=== PATIENT | male | born 1955 | race African-American/Black ===

== ENCOUNTER 2017-04-22 07:55 | Emergency (ER) | payer MEDICAID ==
[~2017-04-22] VITALS: Ht 175.3 cm; Wt 106.1 kg
[~2017-04-22 07:55] MED LIST: ALPOS OP; BLEOS OP; [UNRECOGNIZED DRUG - CODE] OP
[2017-04-22] MEDS ORDERED: MECL25TA PO (08:08)
[2017-04-22] MEDS ORDERED: LANTUS SQ (08:08)
[2017-04-22] MEDS ORDERED: GLIM4TAB PO (08:08)
[2017-04-22] MEDS ORDERED: PRAV40TA1 PO (08:08)
[2017-04-22] MEDS ORDERED: LISI10TA2 PO (08:08)
[2017-04-22] MEDS ORDERED: HYDR-3638 PO (08:08)
[2017-04-22] MEDS ORDERED: LISI20TA2 PO (08:08)
[2017-04-22 08:09] VITALS: BP 179/107
--- NOTE | 2017-04-22 08:09 | NUR ---
Patient wheelchair assisted to bed 3.
--- NOTE | 2017-04-22 08:23 | NUR ---
Patient being evaluated by DR GASTON at bedside.
--- NOTE | 2017-04-22 08:23 | NUR ---
PATIENT PRESENTS TO ED WITH ABDOMINAL PAIN X 2 DAYS NOTED BLOOD STREAKS IN BOWEL MOVEMENT . PT STATES .STATES NAUSEA AND LOOSE STOOLS; SKIN IS PINK/WARM/DRY; AAOX4 WITH EVEN AND STEADY GAIT; LUNGS CLEAR BL; HR EVEN AND REGULAR; PT DENIES ANY FEVER, CP, SOB, OR COUGH AT THIS TIME; PATIENT STATES PAIN OF 8/10 AT THIS TIME; VSS; PATIENT POSITIONED FOR COMFORT; HOB ELEVATED; BEDRAILS UP X2; BED DOWN. ER MD MADE AWARE OF PT STATUS.
[2017-04-22] MEDS ORDERED: cloNIDine 0.1 MG TAB PO ONE (08:35)
[2017-04-22] MEDS ORDERED: KETOROLAC 30 MG/ML VIAL IVP ONE (08:35)
[2017-04-22] MEDS ORDERED: MORPHINE SULFATE 2 MG/ML SYR IVP ONE (08:35)
[2017-04-22] MEDS ORDERED: ONDANSETRON 4 MG/2 ML VIAL IVP ONE (08:35)
[2017-04-22 08:59] LABS: BASOPHILS # (AUTO) 0.2 K/uL (0.00-0.22); EOSINOPHILS # (AUTO) 0.1 K/uL (0-0.4); EOSINOPHILS % (AUTO) 1.3 % (0.0-4.0); HEMATOCRIT 42.5 % (36-52); HEMOGLOBIN 13.5 g/dL (12.0-18.0); LYMPHOCYTES # (AUTO) 1.2 K/uL (2.0-11.5); LYMPHOCYTES % (AUTO) 22.6 % (20.5-51.1); MEAN CORPUSCULAR HEMOGLOBIN 25 pg (27-31); MEAN CORPUSCULAR HGB CONC 32 g/dL (33-37); MEAN CORPUSCULAR VOLUME 80 fL (80-94); MONOCYTES # (AUTO) 0.9 K/uL (0.8-1.0); MONOCYTES % (AUTO) 16.7 % (1.7-9.3); NEUTROPHILS # (AUTO) 2.7 K/uL (1.8-7.7); NEUTROPHILS % (AUTO) 56.4 % (42.2-75.2); PLATELET COUNT (AUTO) 206 K/uL (140-450); RED BLOOD CELL COUNT(AUTO) 5.34 MIL/uL (4.20-6.10); RED CELL DISTRIBUTION WIDTH 13.9 % (11.6-13.7)
--- NOTE | 2017-04-22 09:02 | NUR ---
ULTRASOUND AT BEDSIDE---CT HAS BEEN COMPLETED
[2017-04-22 09:10] LABS: ANION GAP 10.3 (8-16); CARBON DIOXIDE 26.1 mmol/L (21-32); CREATININE 1.1 mg/dL (0.7-1.3); POTASSIUM 3.4 mmol/L (3.5-5.1)
[2017-04-22 09:16] LABS: ALBUMIN 3.4 g/dL (3.4-5.0); TOTAL BILIRUBIN 0.4 mg/dL (0.0-1.0)
[2017-04-22 09:19] LABS: WHITE BLOOD COUNT (AUTO) 5.1 K/uL (4.8-10.8)
--- NOTE | 2017-04-22 09:21 | NUR ---
MEE BRUNO'S GRANDDAUGHTER [phone], PLEASE CALL WHEN READY TO DISCHARGE
[2017-04-22 09:26] LABS: APPEARANCE,URINE CLEAR (CLEAR); BILIRUBIN,URINE NEGATIVE (NEGATIVE); BLOOD, URINE NEGATIVE (NEGATIVE); COLOR,URINE YELLOW (YELLOW); LEUKOCYTE ESTERASE ,URINE NEGATIVE (NEGATIVE); NITRITE, URINE NEGATIVE (NEGATIVE); UGLUCOSE 3+ (NEGATIVE)
--- NOTE | 2017-04-22 09:37 | NUR ---
PT RESTING WITH OU CLOSED, NO S/S RESP DISTRESS---NO GRIMACE NO MOAN-- DENIES PAIN AT THIS TIME--CONTINUES TO WAIT FOR ALL DIAGNOSTICS TO BE RESULTED. X2 SR UP WINTER IN LOW LOCKED POSITION
[2017-04-22 09:42] LABS: RBC,URINE NONE SEEN /HPF (0-5); WBC,URINE 0-5 (RARE) /HPF (0-5)
--- NOTE | 2017-04-22 11:08 | NUR ---
CONTINUES TO WAIT FOR DISPO---RESTING WITH OU CLOSED, NO S/S RESP DISTRESS NO GRIMACE NO MOAN-- WILL CONTINUE TO OBSERVE FOR PAIN CONTROL
[2017-04-22 11:36] VITALS: BP 149/93
--- NOTE | 2017-04-22 11:37 | NUR ---
Patient discharged with v/s stable. Written and verbal after care instructions given and explained. Patient alert, oriented and verbalized understanding of instructions. Ambulatory with steady gait. All questions addressed prior to discharge. ID band removed. Patient advised to follow up with PMD. Rx of CLONIDINE/REGLAN given. Patient educated on indication of medication including possible reaction and side effects. Opportunity to ask questions provided and answered.
== END 2017-04-22 11:36 | disposition home or self-care (01) ==
LOC: MED 07:55
DX: K31.84 Gastroparesis (principal); I10 Essential (primary) hypertension; E11.9 Type 2 diabetes mellitus without complications; Z90.89 Acquired absence of other organs; Z79.4 Long term (current) use of insulin; Z79.899 Other long term (current) drug therapy
CPT/HCPCS: 36415; 74176; 76700; 80053; 81001; 82150; 83690; 85025; 96374; 96375; 99285; J1885; J2270; J2405; Q0092